=== PATIENT | female | born 1940 | race Caucasian/White ===

== ENCOUNTER 2024-01-06 07:21 | Emergency (ER) | payer MEDICARE, SELFPAY ==
--- NOTE | 2024-01-06 07:31 | ECG_ITS ---
[facility] Test Date: 2024-01-06 Pat Name: Trista Ely Department: Room: Gender: Female Alternative Medicine Practitioner: : 1940 Requested By: Fab Edmonds Order Number: [id number] Jhonny MD: Gio Nevarez M.D. Measurements Intervals [place] Rate: 101 P: 0 MN: 0 QRS: -24 QRSD: 62 T: -24 QT: 335 QTc: 436 Interpretive Statements SUPRAVENTRICULAR TACHYCARDIA VOLTAGE CRITERIA FOR LVH [MEETS CRITERIA IN ONE OF: R(aVL), S(V1), R(V5), R(V5/V6)+S(V1)] POSSIBLE SEPTAL MYOCARDIAL INFARCTION , OF INDETERMINATE AGE [30 ms Q WAVE IN V1/V2] No previous ECG available for comparison Electronically Signed On 01-06-2024 23:10:01 [employer]AV[employer] HELPER by Gio Nevarez M.D. [id number] f
--- NOTE | 2024-01-06 07:31 | XR_ITS ---
WS: [id number] XR chest 1V portable [id number] REASON FOR EXAM: dyspnea/cough FINDINGS: Patient position to the left. Moderate tortuosity and ectasia of the thoracic aorta. Mild cardiac enlargement. 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 No acute/subacute pulmonary parenchymal or pleural abnormality. Moderate degenerative spondylosis in the mid and lower thoracic spine. IMPRESSION: Mild cardiomegaly without acute abnormality.
[2024-01-06 07:50] VITALS: PULSE 110; TEMP 36.5; O2SAT 96; BMI 30.1
--- NOTE | 2024-01-06 08:23 | ED_ITS ---
HPI - Nausea/Vomiting/Diarrhea 2 General: Chief complaint: Nausea/Vomiting/Diarrhea Stated complaint: Nausea Time Seen by Provider: 01/06/24 07:24 History of Present Illness: 83-year-old female who presents to the e mergency room with complaints of generally not feeling well and what she describes a low blood pressure for her at 120. No fever sweats or chills she relates all her symptoms to a rash that began after the dog licked her on the left side of her face. She has been on 2 different antibiotics and couple of topical medications as well as having difficulty with nausea vomiting after taking the oral antibiotic currently. No fever sweats or chills. Patient has severe Parkinson's which does seem to affect our monitor at times her heart rate is reading in the 110s and 120s but elevated heart rate at the bedside is normal. Course 2 Vital Signs: Vital signs: Vital Signs Temperature 97.7 F 01/06/24 07:50 Pulse Rate 110 H 01/06/24 07:50 Pulse Oximetry 96 01/06/24 07:50 Oxygen Delivery Me thod Room Air 01/06/24 07:50 MDM - Nausea/Vomiting/Diarrhea Medical Decision Making Feeling better with a small bolus of IV fluids. Discharge patient home encouraged her to stop the topical triamcinolone clindamycin and oral Augmentin and Bactrim. Follow-up with primary care if she has persistent difficulties the rash can evaluate further and may need to see dermatology at some point. Monitor blood sugars closely. Patient was concerned about her blood pressure being relatively low for me at 120 reassurance given. Medical Records I reviewed the patient's medical records. Lab Data I reviewed the patient's lab results. 01/06/24 08:19 01/06/24 08:42 Laboratory Results WBC 6.70 10^3/uL (3.29-11.43) 01/06/24 08:19 RBC 5.32 10^6/uL (3.85-5.65) 01/06/24 08:19 Hgb 16.20 g/dL (11.27-16.99) 01/06/24 08:19 Hct 48.4 % (36-47) H 01/06/24 08:19 MCV 91.0 fl (85-98) 01/06/24 08:19 MCH 30.5 pg (27-33) 01/06/24 08:19 MCHC 33.5 g/dL (30-55) 01/06/24 08:19 RDW 12.6 % (12.1-15.1) 01/06/24 08:19 Plt Count 270 10^3/cmm (157-399) 01/06/24 08:19 MPV 10.0 fL (7.4-10.4) 01/06/24 08:19 Neut % (Auto) 65.8 % 01/06/24 08:19 Lymph % (Auto) 19.7 % 01/06/24 08:19 [place] % (Auto) 12.1 % 01/06/24 08:19 Eos % (Auto) 1.8 % 01/06/24 08:19 Baso % (Auto) 0.3 % 01/06/24 08:19 Neut # (Auto) 4.41 10^3/uL (1.8-7.7) 01/06/24 08:19 Lymph # (Auto) 1.3 10^3/uL (0.8-4.8) 01/06/24 08:19 [place] # (Auto) 0.8 10^3/uL (0.2-0.9) 01/06/24 08:19 Eos # (Auto) 0.1 10^3/uL (0.0-0.8) 01/06/24 08:19 Baso # (Auto) 0.0 10^3/uL (0.0-0.1) 01/06/24 08:19 Nucleated RBC % (auto) 0 % 01/06/24 08:19 Nucleated RBCs # 0.0 /100WBC 01/06/24 08:19 Sodium 131 mmol/L (136-145) L 01/06/24 08:42 Potassium 4.9 mmol/L (3.5-5.1) 01/06/24 08:42 Chloride 97 mmol/L (98-107) L 01/06/24 08:42 Carbon Dioxide 20 mmol/L (22-29) L 01/06/24 08:42 Anion Gap 18.9 (5-19) 01/06/24 08:42 BUN 18 mg/dL (8-23) 01/06/24 08:42 Creatinine 1.1 mg/dL (0.5-0.9) H 01/06/24 08:42 GFR Calculation Not Reportable 01/06/24 08:42 Glucose 215 mg/dL (65-115) H 01/06/24 08:42 POC Glucose 193 mg/dL (70-110) H 01/06/24 08:38 Calculated Osmolality 280 mOsm/kg (285-295) L 01/06/24 08:42 Calcium 9.5 mg/dL (8.5-10.5) 01/06/24 08:42 Total Bilirubin 0.3 mg/dL (0.15-1.2) 01/06/24 08:42 AST 18 U/L (0-32) 01/06/24 08:42 ALT 12 U/L (0-33) 01/06/24 08:42 Alkaline Phosphatase 79 U/L (35-105) 01/06/24 08:42 Total Protein 7.7 g/dL (6.6-8.7) 01/06/24 08:42 Albumin 4.3 g/dL (3.5-5.2) 01/06/24 08:42 Globulin 3.4 g/dL (1.3-4.6) 01/06/24 08:42 Lipase 31 U/L (13-60) 01/06/24 08:42 Urine Color Yellow (Yellow) 01/06/24 07:35 Urine Appearance Clear (CLEAR) 01/06/24 07:35 Urine pH 5 (5-7) 01/06/24 07:35 Ur Specific [place] 1.015 (1.005-1.030) 01/06/24 07:35 Urine Protein 2+ (Negative) H 01/06/24 07:35 Urine Glucose (UA) 2+ (Normal) H 01/06/24 07:35 Urine Ketones Negative (Negative) 01/06/24 07:35 Urine Blood Neg (Negative) 01/06/24 07:35 Urine Nitrate Negative (Negative) 01/06/24 07:35 Urine Bilirubin Neg (Negative) 01/06/24 07:35 Urine Urobilinogen Norm mg/dL (Negative) 01/06/24 07:35 Ur Leukocyte Esterase Negative (Negative) 01/06/24 07:35 Urine RBC 0-4 /hpf (0-2) H 01/06/24 07:35 Urine WBC 0-4 /hpf (0-5) H 01/06/24 07:35 Ur Squamous Epith Cells 0-4 /hpf (0-5) H 01/06/24 07:35 Amorphous Sediment Not Reportable 01/06/24 07:35 Urine Bacteria Trace /hpf (NONE) 01/06/24 07:35 All radiology interpretation(s) finalized by discharge Discharge Plan Discharge Patient Disposition: Home Condition: Stable Prescriptions: Discontinued sulfamethoxazole-trimethoprim 800-160 mg tablet 1 tab PO DAILY triamcinolone acetonide 0.025 % cream 1 applic TOPICAL BID PRN (Reason: Rash) amoxicillin-pot clavulanate 875-125 mg tablet 1 tab PO BID clindamycin phosphate 1 % gel, once daily 1 applic TOPICAL BID No Action carbidopa-levodopa 25-100 mg tablet extended release 1 tab PO QID amlodipine 10 mg tablet 10 mg PO DAILY metformin 500 mg tablet extended release 24 hr 500 mg PO DAILY Tradjenta 5 mg tablet 5 mg PO QAM Discharge Orders: Discharge ED (Routine); Ordered 01/06/24 Ordered By: Fab Recinos Discharge Diet: Usual diet Discharge Activity: Increase activity as tolerated Patient Instructions: Opioid Safety, Pain Management Activity Restrictions/Additional Instructions: Thank you for choosing [facility] for your healthcare needs today. Please realize this is an emergency room and that we are providing you with a medical screening exam and this may not be complete and all inclusive of all the testing and or work up that you may need to determine your ailment or severity of your illness. It is very important that you follow up as instructed or that you return to the Emergency Department should you have concerns or if your condition changes or worsens in any way. Stop amoxicillin and sulfamethoxazole as well as stop using the topical clindamycin and triamcinolone. Follow-up with your primary care doctor if the rash persists you may need to see the monument erector. Coding Level of Care Code ED Commercial Lawn Specialist for Chaim Lundberg
[2024-01-06 08:28] LABS: Basophils % 0.3 %; Eosinophils # 0.1 10^3/uL (0.0-0.8); Eosinophils % 1.8 %; Hematocrit 48.4 % (36-47); Lymphocytes # 1.3 10^3/uL (0.8-4.8); Lymphocytes % 19.7 %; Mean Corpuscular HGB Conc 33.5 g/dL (30-55); Mean Corpuscular Hemoglobin 30.5 pg (27-33); Monocytes # 0.8 10^3/uL (0.2-0.9); Monocytes % 12.1 %; Neutrophils # 4.41 10^3/uL (1.8-7.7); Neutrophils % 65.8 %; Nucleated Red Blood Cells % 0 %; Platelet Count 270 10^3/cmm (157-399); Red Blood Count 5.32 10^6/uL (3.85-5.65); Red Cell Distribution Width 12.6 % (12.1-15.1)
[2024-01-06] MEDS: sodium chloride 0.9% 500 ML 999 ML IV (08:44)
[2024-01-06 08:45] LABS: Glucose Point of Care 193 mg/dL (70-110)
--- NOTE | 2024-01-06 08:57 | PC.PHAR ---
PT HAS RX BOTTLES AND IS VERY KNOWLEDGEABLE ABOUT HER MEDICATIONS
[2024-01-06 09:04] LABS: Alanine Aminotransferase 12 U/L (0-33); Albumin Level 4.3 g/dL (3.5-5.2); Alkaline Phosphatase 79 U/L (35-105); Anion Gap 18.9 (5-19); Aspartate Amino Transferase 18 U/L (0-32); Blood Urea Nitrogen 18 mg/dL (8-23); Calcium 9.5 mg/dL (8.5-10.5); Carbon Dioxide 20 mmol/L (22-29); Chloride 97 mmol/L (98-107); Globulin 3.4 g/dL (1.3-4.6); Glucose 215 mg/dL (65-115); Lipase 31 U/L (13-60); Osmolality Calculated 280 mOsm/kg (285-295); Potassium 4.9 mmol/L (3.5-5.1); Sodium 131 mmol/L (136-145); Total Bilirubin 0.3 mg/dL (0.15-1.2); Total Protein 7.7 g/dL (6.6-8.7)
[2024-01-06 10:57] LABS: Add Urine Culture? No; Add Urine Microscopic? YES; Bacteria Urine TRACE /hpf; Bilirubin Urine Neg (Negative); Blood Urine Neg (Negative); Glucose Urine UA 2+ (Normal); Ketones Urine Negative (Negative); Leukocyte Esterase Urine Negative (Negative); Nitrate Urine Negative (Negative); Protein Urine 2+ (Negative); RBC Urine 0-4 /hpf (0-2); Specific Gravity, Urine 1.015 (1.005-1.030); Squamous Epithelial Cell Urine 0-4 /hpf (0-5); Urine Appearance Clear (CLEAR); Urine Color Yellow (Yellow); Urobilinogen Urine Norm (Negative); WBC Urine 0-4 /hpf (0-5); pH Urine 5 (5-7)
== END 2024-01-06 12:00 | disposition home or self-care (01) ==
PROVIDERS: Emergency Provider Family Medicine
DX: I95.9 Hypotension, unspecified (principal); Z79.84 Long term (current) use of oral hypoglycemic drugs
CPT/HCPCS: 36415; 36416; 71045; 80053; 81001; 82962; 83690; 85025; 93005; 99285; J7040

== ENCOUNTER → 2024-01-15 08:44 | Outpatient (BNVA) | payer MEDICARE, SELFPAY | PROVIDERS: Visit Provider Nurse Practitioner Family | DX: L57.0 Actinic keratosis (principal); T14.8XXA Other injury of unspecified body region, initial encounter; X58.XXXA Exposure to other specified factors, initial encounter; L82.0 Inflamed seborrheic keratosis; L57.8 Other skin changes due to chronic exposure to nonionizing radiation; D22.39 Melanocytic nevi of other parts of face; L81.4 Other melanin hyperpigmentation | CPT/HCPCS: 17000; 17110; 99204 ==

== ENCOUNTER → 2024-02-07 08:36 | Outpatient (BNVA) | payer MEDICARE, SELFPAY | PROVIDERS: PCP Family Medicine; Visit Provider Nurse Practitioner Family | DX: S00.202A Unspecified superficial injury of left eyelid and periocular area, initial encounter (principal); X58.XXXA Exposure to other specified factors, initial encounter; L57.0 Actinic keratosis; L82.0 Inflamed seborrheic keratosis; L57.8 Other skin changes due to chronic exposure to nonionizing radiation; L81.4 Other melanin hyperpigmentation; L73.8 Other specified follicular disorders | CPT/HCPCS: 17000; 17110; 99213 ==